=== PATIENT | female | born 1955 | race Caucasian/White ===

== ENCOUNTER 2019-11-03 11:36 | Observation (INO) ==
[2019-11-03] MEDS ORDERED: Famotidine 20 MG/2 ML VIAL IVP ONE (12:00)
[2019-11-03] MEDS ORDERED: Gabapentin 300 MG CAPSULE PO ONE (12:00)
[2019-11-03] MEDS ORDERED: Ondansetron 4 MG/2 ML VIAL IVP PRN ×2 (12:15→17:07)
[2019-11-03] MEDS ORDERED: Acetaminophen IV 1,000 MG/100 ML INFUS..BTL IVPB ONE (12:15)
[2019-11-03] MEDS ORDERED: *HR* Promethazine 25 MG/ML VIAL IVP PRN (12:15)
[2019-11-03] MEDS ORDERED: *HR* Labetalol 20 MG/4 ML SYRINGE IVP PRN (12:15)
[2019-11-03] MEDS ORDERED: Clindamycin 900 MG/50 ML 900 MG/50 ML IV.SOLN IVPB ONE (12:29)
[2019-11-03] MEDS ORDERED: Ringers Solution, Lactated 1,000 ML IVC SCH (12:30)
[2019-11-03] MEDS ORDERED: Lidocaine/EPI 1:100k 1% 20 ML VIAL ONE (13:04)
[2019-11-03] MEDS ORDERED: *HR* FentaNYL (PF) 100 MCG/2 ML VIAL ONE (13:25)
[2019-11-03] MEDS ORDERED: *HR* Propofol 200 MG/20 ML VIAL IVP ONE (13:25)
[2019-11-03] MEDS ORDERED: Lidocaine -MPF 2% 2 ML VIAL ONE (13:25)
[2019-11-03] MEDS ORDERED: *HR* Succinylcholine 200 MG/10 ML VIAL IVP ONE (13:25)
[2019-11-03] MEDS ORDERED: Ondansetron 4 MG/2 ML VIAL ONE (13:25)
[2019-11-03] MEDS ORDERED: Dexamethasone 4 MG/ML VIAL ONE (13:25)
[2019-11-03] MEDS: *HR* HYDROmorphone (PF) 1 MG/ML SYRINGE IVP PRN ×3 (14:54→15:57)
[2019-11-03] MEDS ORDERED: Ipratropium/Albuterol Neb 3 ML IH ONE (15:31)
[2019-11-03] MEDS ORDERED: Ipratropium/Albuterol Neb 3 ML ONE (15:34)
[2019-11-03] MEDS ORDERED: Naloxone 0.4 MG/ML INJ IVP PRN (17:07)
[2019-11-03] MEDS ORDERED: Ipratropium/Albuterol Neb 3 ML IH PRN (17:10)
[2019-11-03 18:05] LABS: Basophils % 0.1 %; Eosinophils % 0.2 %; Hematocrit 40.1 % (35.3-44.9); Hemoglobin 11.9 g/dL (11.5-15.4); Immature Granulocytes % 0.3 % (0-4); Lymphocytes # 0.6 K/mcL (0.6-4.6); Lymphocytes % 5.5 %; Mean Corpuscular HGB Conc 29.7 g/dL (31.6-35.5); Mean Corpuscular Hemoglobin 24.3 pg (28.0-33.3); Mean Platelet Volume 9.6 fL (9.4-12.4); Monocytes # 0.1 K/mcL (0.0-1.3); Monocytes % 1.4 %; Neutrophils # 9.2 K/mcL (1.6-8.9); Platelet Count 271 K/mcL (140-400); Red Blood Count 4.89 M/mcL (3.82-4.97); Red Cell Distribution Width 15.8 % (11.5-14.5); Segmented Neutrophils % 92.5 %; White Blood Count 9.9 K/mcL (4.3-11.1)
[2019-11-03 18:13] LABS: INR 1.1; Prothrombin Time 12.1 Seconds (9.4-12.1)
[2019-11-03 18:15] LABS: Activated Partial Thrombo Time 33.6 Seconds (26.0-36.0)
[2019-11-03] MEDS: MethylPREDNISolone 40 MG/ML VIAL IVP SCH ×2 (18:16→18:29)
[2019-11-03 18:28] LABS: Alanine Aminotransferase 21 Units/L (7-52); Albumin 4.1 g/dL (3.5-5.7); Albumin/Globulin Ratio 1.1 (1.1-2.2); Alkaline Phosphatase 91 Units/L (34-104); Aspartate Amino Transferase 23 Units/L (13-39); BUN/Creatinine Ratio 24 (6-26); Bilirubin,Total 0.4 mg/dL (0.3-1.0); Blood Urea Nitrogen 19 mg/dL (8-23); Calcium 9.1 mg/dL (8.6-10.3); Carbon Dioxide 26 mEq/L (23-29); Chloride 102 mEq/L (98-107); Globulin 3.7 g/dL (2.4-3.5); Glucose 114 mg/dL (70-105); Magnesium 1.9 mg/dL (1.6-2.6); Osmolality,Calculated 285 (280-300); Phosphorous 4.2 mg/dL (2.7-4.5); Potassium 4.4 mEq/L (3.5-5.1); Sodium 136 mEq/L (136-145); Total Protein 7.8 g/dL (6.4-8.9); Troponin I < 0.03 ng/mL (< 0.04); eGFR For African Americans > 60 (> 60); eGFR For Non-African Americans > 60 (> 60)
[2019-11-03 18:49] LABS: ABG Base Excess 4 mEq/L (-2 to 3); ABG HCO3 31 mEq/L (21-27); ABG Oxygen Saturation 87 % (95-98); ABG PCO2 57 mmHg (35-45); ABG PH 7.34 pH Units (7.32-7.45); ABG PO2 58 mmHg (85-104); ABG TCO2 33 mEq/L (20-26)
[2019-11-03] MEDS: *HR* Heparin 5,000 UNIT/ML VIAL SQ SCH (19:21)
[2019-11-03] MEDS: cloNIDine HCL 0.1 MG TABLET PO SCH (20:20)
[2019-11-03] MEDS: rOPINIRole 1 MG TABLET PO SCH (20:21)
[2019-11-03] MEDS: Baclofen 10 MG TABLET PO SCH (20:22)
[2019-11-03] MEDS: Gabapentin 400 MG CAPSULE PO SCH (20:22)
[2019-11-03] MEDS: Acetaminophen 325 MG TABLET PO PRN (21:31)
[2019-11-04] MEDS: Acetaminophen 325 MG TABLET PO PRN ×2 (03:44→14:50)
[2019-11-04] MEDS: MethylPREDNISolone 40 MG/ML VIAL IVP SCH (06:12)
[2019-11-04] MEDS: *HR* Heparin 5,000 UNIT/ML VIAL SQ SCH ×2 (06:14→17:34)
[2019-11-04] MEDS: Aspirin Enteric Coated 81 MG Tablet PO SCH (08:25)
[2019-11-04] MEDS: BuPROPion XL (24 HR) 150 MG TABLET PO SCH (08:25)
[2019-11-04] MEDS: rOPINIRole 1 MG TABLET PO SCH ×2 (08:25→22:33)
[2019-11-04] MEDS: Gabapentin 400 MG CAPSULE PO SCH ×3 (08:25→22:33)
[2019-11-04] MEDS: atenoloL 25 MG TABLET PO SCH (08:25)
[2019-11-04] MEDS: Baclofen 10 MG TABLET PO SCH ×3 (08:25→22:33)
[2019-11-04] MEDS: Furosemide 40 MG/4 ML VIAL IVP SCH ×2 (08:33→09:13)
[2019-11-04] MEDS ORDERED: Perflutren Lipid Microsphere 1.3 ML in 0.9 % Sodium Chloride 8.7 ML IVP PRN (10:47)
[2019-11-04] MEDS ORDERED: MORPHINE IT SCH (15:30)
[2019-11-04] MEDS: cloNIDine HCL 0.1 MG TABLET PO SCH (22:33)
[2019-11-05] MEDS: *HR* Heparin 5,000 UNIT/ML VIAL SQ SCH (05:10)
[2019-11-05] MEDS: Acetaminophen 325 MG TABLET PO PRN (05:50)
[2019-11-05 07:05] LABS: BUN/Creatinine Ratio 40 (6-26); Blood Urea Nitrogen 35 mg/dL (8-23); Calcium 9.5 mg/dL (8.6-10.3); Carbon Dioxide 32 mEq/L (23-29); Chloride 101 mEq/L (98-107); Glucose 97 mg/dL (70-105); Magnesium 2.2 mg/dL (1.6-2.6); Osmolality,Calculated 294 (280-300); Phosphorous 3.3 mg/dL (2.7-4.5); Sodium 138 mEq/L (136-145); eGFR For African Americans > 60 (> 60); eGFR For Non-African Americans > 60 (> 60)
[2019-11-05] MEDS ORDERED: predniSONE 20 MG TABLET PO SCH (09:00)
[2019-11-05] MEDS: Gabapentin 400 MG CAPSULE PO SCH (10:03)
[2019-11-05] MEDS: rOPINIRole 1 MG TABLET PO SCH (10:03)
[2019-11-05] MEDS: atenoloL 25 MG TABLET PO SCH (10:04)
[2019-11-05] MEDS: Baclofen 10 MG TABLET PO SCH (10:04)
[2019-11-05] MEDS: Aspirin Enteric Coated 81 MG Tablet PO SCH (10:04)
[2019-11-05] MEDS: BuPROPion XL (24 HR) 150 MG TABLET PO SCH (10:04)
[2019-11-05] MEDS: Furosemide 40 MG/4 ML VIAL IVP SCH (10:05)
[2019-11-05 10:45] VITALS: BP 118/70
== END 2019-11-05 16:13 | disposition home or self-care (01) ==
LOC: SAMDAY 11:36 → 3NENU 11:36 → SUATTDRO 17:42
PROVIDERS: ADMIT Internal Medicine; ATTEND Internal Medicine